=== PATIENT | female | born 1940 | race Caucasian/White ===

== ENCOUNTER 2024-02-18 15:13 | Outpatient (RCR) | payer MEDICARE, OTHER, SELFPAY | END 2024-02-18 23:59 | disposition home or self-care (01) | LOC: RST 15:13 | PROVIDERS: ATTENDING PHYSICIAN Psychiatry & Neurology Neurology; FAMILY PHYSICIAN Student in an Organized Health Care Education/Training Program | DX: R47.89 Other speech disturbances (principal); R47.01 Aphasia | CPT/HCPCS: 92507; 92523 ==

== ENCOUNTER 2024-03-24 12:59 | Outpatient (RCR) | payer MEDICARE, OTHER, SELFPAY | END 2024-03-24 23:59 | disposition home or self-care (01) | LOC: RST 12:59 | PROVIDERS: ATTENDING PHYSICIAN Psychiatry & Neurology Neurology; FAMILY PHYSICIAN Student in an Organized Health Care Education/Training Program | DX: R47.89 Other speech disturbances (principal); R47.01 Aphasia | CPT/HCPCS: 92507 ==

== ENCOUNTER 2024-04-09 13:38 | Outpatient (RCR) | payer MEDICARE, OTHER, SELFPAY | END 2024-04-09 23:59 | disposition home or self-care (01) | LOC: RST 13:38 | PROVIDERS: ATTENDING PHYSICIAN Psychiatry & Neurology Neurology; FAMILY PHYSICIAN Student in an Organized Health Care Education/Training Program | DX: R47.89 Other speech disturbances (principal); R47.01 Aphasia | CPT/HCPCS: 92507 ==

== ENCOUNTER → 2024-04-23 13:36 | Outpatient (REF) | payer MEDICARE, OTHER, SELFPAY | LOC: HWRAD 13:36 | PROVIDERS: ATTENDING PHYSICIAN Student in an Organized Health Care Education/Training Program | DX: R15.2 Fecal urgency (principal); R19.7 Diarrhea, unspecified | CPT/HCPCS: 74177; Q9967 ==

== ENCOUNTER 2024-05-05 15:11 | Outpatient (RCR) | payer MEDICARE, OTHER, SELFPAY | END 2024-05-05 23:59 | disposition home or self-care (01) | LOC: RST 15:11 | PROVIDERS: ATTENDING PHYSICIAN Psychiatry & Neurology Neurology; FAMILY PHYSICIAN Student in an Organized Health Care Education/Training Program | DX: R47.89 Other speech disturbances (principal); R47.01 Aphasia | CPT/HCPCS: 92507 ==

== ENCOUNTER 2024-06-25 14:18 | Outpatient (RCR) | payer MEDICARE, OTHER, SELFPAY | END 2024-06-25 23:59 | disposition home or self-care (01) | LOC: RST 14:18 | PROVIDERS: ATTENDING PHYSICIAN Psychiatry & Neurology Neurology; FAMILY PHYSICIAN Student in an Organized Health Care Education/Training Program | DX: R47.89 Other speech disturbances (principal); R47.01 Aphasia | CPT/HCPCS: 92507 ==

== ENCOUNTER → 2024-10-31 11:13 | Outpatient (REF) | payer MEDICARE, OTHER, SELFPAY | LOC: HWRAD 11:13 | PROVIDERS: FAMILY PHYSICIAN Student in an Organized Health Care Education/Training Program; REFERRING PHYSICIAN Internal Medicine Gastroenterology | DX: K59.09 Other constipation (principal) | CPT/HCPCS: 74018 ==